=== PATIENT | male | born 1985 | race African-American/Black ===

== ENCOUNTER 2021-11-24 15:32 | Emergency (ER) | payer OTHER ==
[2021-11-24] MEDS ORDERED: Ketorolac Tromethamine 30 MG/ML VIAL ONE (16:34)
== END 2021-11-24 17:46 | disposition home or self-care (01) ==
LOC: ERS 15:32
DX: S82.142A Displaced bicondylar fracture of left tibia, initial encounter for closed fracture (principal); W18.30XA Fall on same level, unspecified, initial encounter; Y93.67 Activity, basketball
CPT/HCPCS: J1885